=== PATIENT | female | born 1945 | race Two or more races ===

== ENCOUNTER → 2016-10-11 | Outpatient (CLI) | payer OTHER ==
--- NOTE | 2016-10-11 15:14 | MA ---
Diagnostic Digital Mammogram Right Breast With iCAD Analysis Reason for examination: Evaluate microcalcifications noted in the outer right breast on the screening mammographic study of September 22, 2016. Technique: Oblique and craniocaudal spot compression views were obtained. Also, a true lateral was pe rformed. The examination was processed by the iCAD computer-aided detection system. Comparison: Comparison to older studies dating back to April 2010. Findings: Diagnostic views confirm a cluster of faint rounded microcalcifications in the outer right breast. These are definitely identified in retrospect on the spot compression craniocaudal view from the April 2010 study. Impression: Stable benign mammography. BI-RADS 2. Recommendation: Resume routine mammographic screening in one year as long as physical examination is negative. I have reviewed this examination with Dr. Joiner and he is in agreement with interpretation as well as followup recommendation. A verbal report was given to the patient. [facility] with send a result letter.
== END ==
LOC: FIMAGING 14:20
DX: R92.0 Mammographic microcalcification found on diagnostic imaging of breast (principal)
CPT/HCPCS: G0206

== ENCOUNTER → 2017-09-23 | Outpatient (CLI) | payer OTHER | LOC: FIMAGING 15:12 | DX: Z12.31 Encounter for screening mammogram for malignant neoplasm of breast (principal) | CPT/HCPCS: G0202 ==

== ENCOUNTER → 2018-07-13 | Outpatient (CLI) | payer OTHER | LOC: FIMAGING 10:53 | PROVIDERS: ATTEND Physician Assistant | DX: M75.121 Complete rotator cuff tear or rupture of right shoulder, not specified as traumatic (principal); M75.51 Bursitis of right shoulder; M24.811 Other specific joint derangements of right shoulder, not elsewhere classified ==

== ENCOUNTER → 2018-12-27 | Outpatient (CLI) | payer OTHER | LOC: FIMAGING 13:13 | PROVIDERS: ATTEND Physician Assistant | DX: Z12.31 Encounter for screening mammogram for malignant neoplasm of breast (principal) ==